=== PATIENT | female | born 1990 | race Two or more races ===

== ENCOUNTER 2018-04-04 15:51 | Emergency (ER) | payer OTHER, MEDICAID ==
[~2018-04-04] VITALS: Ht 162.6 cm; Wt 77.1 kg
--- NOTE | 2018-04-04 16:16 | NUR ---
PT C/O BLURRING OF VISION AROUND NOON FOLLOWED BY HEADACHE WHILE ON THE COMPUTER & ALSO C/O LT HAND & LIP TINGLING SENSATION THAT LASTED 5 MINS & RESOLVED PER PT, " I JUST HAVE THE HEADACHE ". DENIES CP, SOB, DIZZINESS, N/V, NUMBNESS/TINGLING, WEAKNESS OR ANY OTHER DISCOMFORT @ THIS TIME. AWAITING EVAL BY /PA. WILL CONT TO MONITOR.
--- NOTE | 2018-04-04 16:24 | NUR ---
DR. HAMILTON @ BS FOR GREGORY[facility].
--- NOTE | 2018-04-04 17:06 | NUR ---
Patient discharged to home in stable condition. Written and verbal after care instructions given. Patient verbalizes understanding of instruction.
[2018-04-04 17:07] VITALS: BP 115/80
== END 2018-04-04 17:08 | disposition home or self-care (01) ==
LOC: ER 15:52
DX: R51 Headache (principal); H53.8 Other visual disturbances; R20.2 Paresthesia of skin
CPT/HCPCS: A4606; Z7502; Z7610